=== PATIENT | female | born 1950 | race Caucasian/White ===

== ENCOUNTER 2018-10-15 19:29 | Emergency (ER) | payer MEDICARE, OTHER ==
[2018-10-15] MEDS ORDERED: Zofran 4 MG/2 ML VIAL IV ONE (19:37)
[2018-10-15] MEDS ORDERED: Sodium Chloride 0.9% 1000 ML 1,000 ML IV STA (19:37)
[2018-10-15] MEDS ORDERED: SUBLIMAZE 100 MCG/2 ML IV ONE ×2 (19:37→20:06)
[2018-10-15] MEDS ORDERED: Zofran 4 MG/2 ML VIAL ONE (19:40)
[2018-10-15] MEDS ORDERED: SUBLIMAZE 100 MCG/2 ML ONE ×2 (19:41→20:07)
--- NOTE | 2018-10-15 19:47 | ERPHSYRPT ---
- History of Present Illness Time Seen by Provider: 10/15/18 19:44 Source: patient Exam Limitations: no limitations Physician History: 68-year-old white female with history of abdominal aortic aneurysm arrives with complaint of pain in the substernal area radiating to her back pain her abdomen symptoms since 10 minutes prior to arrival patient does have a history of aortic aneurysm fixed with grafts in the past x2. Past medical history includes high blood pressure, abdominal aortic aneurysm \ Past surgical history includes orthopedic surgery foot surgery Timing/Duration: today (10 minutes prior to arrival) Modifying Factors: Improves With: nothing Associated Symptoms: No fever, No chills, No chest pain/soreness, No cough, No dizziness, No earache, No facial pain, No headache, No lightheadedness, No muscle aches, No nasal congestion, No nasal drainage, No shortness of breath, No sinus infection International travel in last 2 weeks: No Allergies/Adverse Reactions: aspirin Allergy (Verified 10/15/18 19:32) Hives NSAIDS (Non-Steroidal Anti-Inflamma Allergy (Verified 03/30/16 19:06) Sulfa (Sulfonamide Antibiotics) Allergy (Verified 10/15/18 19:32) yellow dye Allergy (Verified 03/30/16 19:06) Home Medications: Esomeprazole Magnesium [Nexium] 40 mg PO DAILY 11/29/14 [History] Estrogens,Conjugated [Premarin] 0.625 mg PO DAILY 11/29/14 [History] Hydroxyzine HCl 25 mg [Atarax 25 mg] 25 mg PO UD PRN 11/29/14 [History] Lisinopril 10 mg [Zestril 10 MG] 10 mg PO BID 11/29/14 [History] Sertraline HCl 100 mg PO DAILY 11/29/14 [History] Sucralfate 1 gm [Carafate 1 GM] 1 g PO QID 11/29/14 [History] Hx Tetanus, Diphtheria Vaccination/Date Given: Yes Hx Influenza Vaccination/Date Given: Yes Hx Pneumococcal Vaccination/Date Given: Yes - Review of Systems Constitutional: No Fever, No Chills Eyes: No Symptoms Ears, Nose, & Throat: No Symptoms Respiratory: No Cough, No Dyspnea Cardiac: Chest Pain, No Edema, No Syncope Abdominal/Gastrointestinal: Abdominal Pain, No Nausea, No Vomiting, No Diarrhea Genitourinary Symptoms: No Dysuria Musculoskeletal: No Back Pain, No Neck Pain Skin: No Rash Neurological: No Dizziness, No Focal Weakness, No Sensory Changes Psychological: No Symptoms Endocrine: No Symptoms All Other Systems: Reviewed and Negative - Past Medical History Pertinent Past Medical History: Yes Neurological History: No Pertinent History ENT History: No Pertinent History Cardiac History: Hypertension Respiratory History: No Pertinent History Endocrine Medical History: No Pertinent History Musculoskeletal History: No Pertinent History GI Medical History: No Pertinent History History: No Pertinent History Psycho-Social History: No Pertinent History - Past Surgical History Past Surgical History: Yes Neuro Surgical History: No Pertinent History Cardiac: No Pertinent History Respiratory: No Pertinent History Gastrointestinal: No Pertinent History Genitourinary: No Pertinent History Musculoskeletal: Orthopedic Surgery Female Surgical History: No Pertinent History Other Surgical History: foot surgery - Social History Smoking Status: Former smoker Exposure to second hand smoke: No Alcohol Use: None Drug Use: none Patient Lives Alone: No - Nursing Vital Signs Nursing Vital Signs: Initial Vital Signs Pulse Rate 72 10/15/18 19:51 Respiratory Rate 26 H 10/15/18 19:51 Blood Pressure 98/42 10/15/18 19:51 O2 Sat by Pulse Oximetry 95 10/15/18 19:51 Pain Scale Pain Intensity 10 - Physical Exam General Appearance: moderate distress, alert Eye Exam: PERRL/EOMI, eyes nml inspection Ears, Nose, Throat Exam: normal ENT inspection, TMs normal, pharynx normal, moist mucous membranes Neck Exam: normal inspection, non-tender, supple, full range of motion Respiratory Exam: normal breath sounds, lungs clear, No respiratory distress Cardiovascular Exam: regular rate/rhythm, normal heart sounds, capillary refill <2 sec Gastrointestinal/Abdomen Exam: soft, tenderness Back Exam: normal inspection, No CVA tenderness, No vertebral tenderness Extremity Exam: normal inspection, normal range of motion Neurologic Exam: alert, oriented x 3, cooperative, sleeve setter safety stitch II-XII nml as tested, normal mood/affect, sensation nml, No motor deficits Skin Exam: normal color, warm, dry, No rash Lymphatic Exam: No adenopathy SpO2 Interpretation: normal - Course Nursing assessment & vital signs reviewed: Yes EKG Interpreted by Me: RATE (79 bpm), Sinus Rhythm, 1st degree AV Block, Other ( EKG: Sinus rhythm, with first degree AV block and PVC, 70 IVs per minute, normal axis, no acute ST or T wave changes.) - CT Exams Chest CT Interpretation: Discussed w/radiologist (CT chest compared to August 30, 2015 descending aortic aneurysm overall stable in size again with stent graft and stent graft now of face to 80-90%. Intraluminal narrowing. Contrast exam recommended for further characterization stable mediastinal/hilar calcified nodes.) Abdomen CT Interpretation: Discussed w/radiologist (CT abdomen: Compared to November 29, 2014. Stable tiny hepatic cysts and proximal AAA remaining abdomen/pelvis negative) Ordered Tests: Active Orders 24 hr Category Date Time Status IV Insertion STAT Care 10/15/18 19:37 Active IV Insertion STAT Care 10/15/18 19:58 Active Pulse Oximetry (ED) STAT Care 10/15/18 19:37 Active ABDOMEN AND PELVIS W/0 CONTRAS [CT] Stat Exams 10/15/18 19:47 Taken CHEST WITHOUT CONTRAST [CT] Stat Exams 10/15/18 19:41 Taken AMYLASE Stat Lab 10/15/18 19:37 Completed CBC W DIFF Stat Lab 10/15/18 19:37 Completed CMP Stat Lab 10/15/18 19:37 Completed LIPASE Stat Lab 10/15/18 19:37 Completed Manual Differential NC Stat Lab 10/15/18 19:37 Completed PROTIME WITH INR Stat Lab 10/15/18 19:37 Completed PTT Stat Lab 10/15/18 19:37 Completed TROPONIN Q3H Lab 10/15/18 19:40 Completed TROPONIN Q3H Lab 10/15/18 22:45 Ordered TROPONIN Q3H Lab 10/16/18 01:45 Ordered TROPONIN Q3H Lab 10/16/18 04:45 Ordered TROPONIN Q3H Lab 10/16/18 07:45 Ordered Medication Summary Generic Name Dose Route Start Last Admin Trade Name Freq PRN Reason Stop Dose Admin Sodium Chloride 1,000 mls @ 999 mls/hr 10/15/18 19:37 10/15/18 20:11 Sodium Chloride 0.9% 1000 Ml IV 10/15/18 20:37 999 mls/hr .Q1H1M STA Administration Discontinued Medications Generic Name Dose Route Start Last Admin Trade Name Freq PRN Reason Stop Dose Admin Fentanyl Citrate 75 mcg 10/15/18 19:37 10/15/18 20:13 Sublimaze 100 Mcg/2 Ml IV 10/15/18 19:38 75 mcg STAT ONE Administration Fentanyl Citrate Confirm 10/15/18 19:41 Sublimaze 100 Mcg/2 Ml Administered 10/15/18 19:42 Dose 100 mcg .ROUTE .STK-MED ONE Fentanyl Citrate 50 mcg 10/15/18 20:06 Sublimaze 100 Mcg/2 Ml IV 10/15/18 20:07 STAT ONE Fentanyl Citrate Confirm 10/15/18 20:07 Sublimaze 100 Mcg/2 Ml Administered 10/15/18 20:08 Dose 100 mcg .ROUTE .STK-MED ONE Sodium Chloride Confirm 10/15/18 20:07 Sodium Chloride 0.9% 1000 Ml Administered 10/15/18 20:08 Dose 2,000 mls @ ud .ROUTE .STK-MED ONE Ondansetron HCl 4 mg 10/15/18 19:37 10/15/18 20:12 Zofran 4 Mg/2 Ml Vial IV 10/15/18 19:38 4 mg STAT ONE Administration Ondansetron HCl Confirm 10/15/18 19:40 Zofran 4 Mg/2 Ml Vial Administered 10/15/18 19:41 Dose 4 mg .ROUTE .STK-MED ONE Lab/Rad Data: Laboratory Result Diagrams 10/15/18 19:37 10/15/18 19:37 Laboratory Results 10/15/18 10/15/18 10/15/18 Range/Units 19:40 19:37 19:37 WBC (4.0-10.5) K/mm3 RBC (4.1-5.4) M/mm3 Hgb (12.0-16.0) gm/dl Hct (35-47) % MCV (78-100) fl MCH (26-32) pg MCHC (32-36) g/dl RDW (11.5-14.0) % Plt Count (150-450) K/mm3 MPV (6-9.5) fl Absolute Granulocytes (1.4-6.9) Segmented Neutrophils (36.0-66.0) % Band Neutrophils (0.0-2.0) % Lymphocytes (Manual) (24-44) % Monocytes (Manual) (0.0-12.0) % Platelet Estimate (NORMAL) RBC Morphology PT 12.1 (9.95-12.35) SECONDS INR 1.04 (0.8-3.0) APTT 36.1 (25.3-37.0) SECONDS Sodium 139 (137-145) mmol/L Potassium 4.0 (3.5-5.1) mmol/L Chloride 104 (98-107) mmol/L Carbon Dioxide 23 (22-30) mmol/L Anion Gap 16.7 H (5-15) MEQ/L BUN 21 H (7-17) mg/dL Creatinine 1.25 H (0.52-1.04) mg/dL Estimated GFR 45.3 ML/MIN Glucose 121 H (74-106) mg/dL Calcium 9.3 (8.4-10.2) mg/dL Total Bilirubin 0.30 (0.2-1.3) mg/dL AST 21 (14-36) U/L ALT 18 (0-35) U/L Alkaline Phosphatase 108 (38-126) U/L Troponin I < 0.012 (0.000-0.034) ng/mL Serum Total Protein 7.6 (6.3-8.2) g/dL Albumin 4.1 (3.5-5.0) g/dL Amylase 97 (30-110) U/L Lipase 147 (23-300) U/L 10/15/18 Range/Units 19:37 WBC 11.7 H (4.0-10.5) K/mm3 RBC 3.97 L (4.1-5.4) M/mm3 Hgb 12.0 (12.0-16.0) gm/dl Hct 36.9 (35-47) % MCV 92.9 (78-100) fl MCH 30.2 (26-32) pg MCHC 32.5 (32-36) g/dl RDW 13.6 (11.5-14.0) % Plt Count 157 (150-450) K/mm3 MPV 11.4 H (6-9.5) fl Absolute Granulocytes 7.26 H (1.4-6.9) Segmented Neutrophils 61 (36.0-66.0) % Band Neutrophils 1 (0.0-2.0) % Lymphocytes (Manual) 31 (24-44) % Monocytes (Manual) 2 (0.0-12.0) % Platelet Estimate NORMAL (NORMAL) RBC Morphology NORMAL PT (9.95-12.35) SECONDS INR (0.8-3.0) APTT (25.3-37.0) SECONDS Sodium (137-145) mmol/L Potassium (3.5-5.1) mmol/L Chloride (98-107) mmol/L Carbon Dioxide (22-30) mmol/L Anion Gap (5-15) MEQ/L BUN (7-17) mg/dL Creatinine (0.52-1.04) mg/dL Estimated GFR ML/MIN Glucose (74-106) mg/dL Calcium (8.4-10.2) mg/dL Total Bilirubin (0.2-1.3) mg/dL AST (14-36) U/L ALT (0-35) U/L Alkaline Phosphatase (38-126) U/L Troponin I (0.000-0.034) ng/mL Serum Total Protein (6.3-8.2) g/dL Albumin (3.5-5.0) g/dL Amylase (30-110) U/L Lipase (23-300) U/L - Progress Air Movement: fair Progress Note: 10/15/18 20:07 68-year-old white female with history of thoracic aneurysm and abdominal aneurysm with endograft arrives with complaint of pain in the anterior chest radiating to the back also pain in her abdomen symptoms began approximately 10 minutes prior to arrival when moving flowerpots. Patient arrives with the moderate distress moaning in pain Patient blood pressure 98/42 on the right 160 palpation on the left patient with a 90 his pulse oximetry pulse is 78% Patient has a CT of the abdomen which has been shot but not read yet EKG on this patient remarkable for sinus rhythm with first degree AV block normal axis PVCs no acute ST or T wave changes Patient with [address] on with normal saline running and the other one at 150 mL per hour patient has been given fentanyl 70 mcg IV she has another one ordered for 50 mcg IV she is being given Zofran. CBC white blood cell 11.7 hemoglobin 12.0 hematocrit 36.9 platelets 157 Chemistry, amylase lipase troponin PT PTT are pending I discussed case with Dr. Silverman again at [facility]. Impression chest pain, to abdominal pain, suspect aortic dissection. Plan I will transfer patient directly to [facility] emergency room will continue IV fluids continue telemetry O2 to keep sats over 90% fentanyl for pain - Departure Departure Disposition: Transfer ([facility]) Clinical Impression: suspected aortic dissection Chest pain Qualifiers: Chest pain type: unspecified Qualified Code(s): R07.9 - Chest pain, unspecified Abdominal pain Qualifiers: Abdominal location: generalized Qualified Code(s): R10.84 - Generalized abdominal pain Condition: Fair Critical Care Time: No Referrals: SUSAN KAPLAN [Primary Care Provider] -
[2018-10-15 19:54] LABS: Hematocrit 36.9 % (35-47); Mean Cell Volume 92.9 fl (78-100); Mean Corpuscular Hemoglobin 30.2 pg (26-32); Mean Corpuscular Hgb Concent. 32.5 g/dl (32-36); Mean Platelet Volume 11.4 fl (6-9.5); Platelet Count 157 K/mm3 (150-450); Red Blood Count 3.97 M/mm3 (4.1-5.4); Red Cell Distribution Width 13.6 % (11.5-14.0); White Blood Count 11.7 K/mm3 (4.0-10.5)
[2018-10-15 19:57] LABS: INR 1.04 (0.8-3.0); PROTIME 12.1 SECONDS (9.95-12.35)
[2018-10-15 19:59] LABS: PTT 36.1 SECONDS (25.3-37.0)
[2018-10-15 20:01] LABS: ALBUMIN 4.1 g/dL (3.5-5.0); ANION GAP 16.7 MEQ/L (5-15); BILIRUBIN,TOTAL 0.3 mg/dL (0.2-1.3); Calcium 9.3 mg/dL (8.4-10.2); Creatinine 1 1.25 mg/dL (0.52-1.04); Total Protein 7.6 g/dL (6.3-8.2)
[2018-10-15] MEDS ORDERED: Sodium Chloride 0.9% 1000 ML 2,000 ML ONE (20:07)
[2018-10-15 20:25] LABS: BAND 1 % (0.0-2.0); Granulocyte Absolute (ANC) 7.26 (1.4-6.9); Lymphocytes 31 % (24-44); Monocyte 2 % (0.0-12.0); Neutrophils 61 % (36.0-66.0); Total Cells Counted 100
[2018-10-15 20:26] LABS: Platelet Estimate NORMAL (NORMAL)
[2018-10-15 20:37] VITALS: BP 126/48; PULSE 70; O2SAT 97
--- NOTE | 2018-10-16 09:15 | XRAY ---
Indication: Chest/back pain. History of dissecting aneurysm 2008. Multiple contiguous axial images obtained through the chest without contrast as ordered. Comparison: August 30, 2015. Heart is not enlarged. No pericardial effusion. Stable subcarinal and right perihilar calcified nodes. No pathologic mediastinal lymphadenopathy. Again there is descending aortic aneurysm with stent graft. Maximum diameter of the descending aorta is 4.7 cm, previously 4.4 cm. Majority of the descending stent graft now demonstrates effacement with intraluminal narrowing up to 80-90%. Lack of IV contrast precludes further characterization but findings worrisome for dissection. No free fluid/effusion. Examination of the lung parenchyma demonstrates minimal bilateral dependent atelectasis. Stable left apical subpleural cystic changes and minimal left base fibrosis/scarring. Also stable 4 mm peripheral right lower lobe noncalcified nodule probably granulomatous. No new pulmonary mass, infiltrate, or consolidation. Bony thorax intact again with minimal degenerative changes throughout the spine. CT abdomen reported separately. Impression: 1. Minimally enlarging descending thoracic aneurysm again with stent graft in situ. However the majority of the stent graft now appears effaced as detailed concerning for dissection. CT chest with contrast exam may yield further information. 2. Again evidence for old granulomatous disease. Comment: Telephone report was given to Dr. Jaimes in the ER at 2025 hrs. on October 15, 2018.
--- NOTE | 2018-10-16 09:16 | XRAY ---
Indication: Chest/back pain. History of dissecting aneurysm 2008. Multiple contiguous axial images obtained through the abdomen and pelvis without contrast as ordered. Comparison: November 29, 2014. CT chest including thoracic aorta aneurysm reported separately. Noncontrasted stomach and bowel loops appear nonobstructed. Again hysterectomy. No free fluid/air. Stable tiny hepatic cysts. Remaining liver, gallbladder, pancreas, spleen, adrenal glands, kidneys, ureters, and bladder appear unremarkable for noncontrast exam. Again mild aortoiliac calcifications. Previous mural thrombus not well evaluated on this noncontrast exam. No focal fusiform/saccular aneurysm. Osseous structures intact again with mild degenerative spondylosis throughout the spine including minimal grade 1 L4 spondylolisthesis. New left inguinal surgical clips. Impression: 1. Lack of IV contrast precludes evaluation of previous AAA with mural thrombus. Overall diameter of the abdominal aorta appears unchanged without focal fusiform/saccular aneurysm. 2. Stable tiny hepatic cysts, degenerative spondylosis, and grade 1 L4 spondylolisthesis. Comment: Telephone report was given to Dr. Jaimes in the ER at 2025 hrs. on October 15, 2018. CT DI 23.68
== END 2018-10-15 20:19 | disposition short-term general hospital (02) ==
LOC: ED 19:29
DX: R07.9 Chest pain, unspecified (principal); R10.84 Generalized abdominal pain
CPT/HCPCS: 36000; 36415; 71250; 74176; 80053; 82150; 83690; 84484; 85025; 85610; 85730; 96360; 96374; 96375; 96376; 99285; 99291; J2405; J3010